=== PATIENT | male | born 1960 | race Caucasian/White ===

== ENCOUNTER 2020-02-09 08:37 | Outpatient (CLI) | payer OTHER ==
[2020-02-09] MEDS ORDERED: losartan PO (09:26)
[2020-02-09] MEDS ORDERED: VITA1TAB19 PO (09:26)
[2020-02-09] MEDS ORDERED: amlodipine PO (09:26)
[2020-02-09] MEDS ORDERED: VITA400C43 PO (09:26)
[2020-02-09] MEDS ORDERED: lipitor PO (09:26)
[2020-02-09 09:59] LABS: BASOPHILS # (AUTO) 0.07 x10^3/uL (0-0.1); BASOPHILS % (AUTO) 1 % (0-1); EOSINOPHILS # (AUTO) 0.14 x10^3/uL (0-0.4); EOSINOPHILS % (AUTO) 2 % (1-7); HCT (SEDRATE) 48.5 % (39.2-51.8); LYMPHOCYTES # (AUTO) 2.68 x10^3/uL (1-3.4); LYMPHOCYTES % (AUTO) 33 % (22-44); MD NO; MEAN CORPUSCULAR HGB CONC 34.6 g/dL (33.2-36.2); MEAN CORPUSCULAR VOLUME 92.4 fL (81-97); MONOCYTES # (AUTO) 0.43 x10^3/uL (0.2-0.8); MONOCYTES % (AUTO) 5 % (2-9); NEUTROPHILS # (AUTO) 4.86 x10^3/uL (1.8-6.8); NEUTROPHILS % (AUTO) 59 % (42-75); PLATELET COUNT 275 x10^3/uL (130-400); RED BLOOD COUNT 5.25 x10^6/uL (4.38-5.82); RED CELL DISTRIBUTION WIDTH 12.6 % (9.4-14.8)
[2020-02-09 10:07] LABS: MICROSCOPIC NOT IND
[2020-02-09 10:10] LABS: INTERNATIONAL NORMALIZED RATIO 0.9 (0.93-1.1); PROTHROMBIN TIME 9.5 Seconds (9.6-11.5)
[2020-02-09 10:11] LABS: CULTURE INDICATED? NO
[2020-02-09 10:15] LABS: ALANINE AMINOTRANSFERASE 19 U/L (12-78); ALBUMIN 3.5 g/dL (3.4-5.0); ANION GAP 11 mmol/L (5-15); CALCIUM 8.2 mg/dL (8.5-10.1); CHLORIDE 111 mmol/L (98-107); CREATININE 1.13 mg/dL (0.7-1.3)
[2020-02-09 10:17] LABS: ALKALINE PHOSPHATASE 162 U/L (45-117); BILIRUBIN,TOTAL 0.4 mg/dL (0.2-1.0)
[2020-02-13] MEDS ORDERED: LOSA50TA14 PO (06:42)
[2020-02-13] MEDS ORDERED: AMLO10TA8 PO (06:42)
[2020-02-13] MEDS ORDERED: BUPR150T6 PO (06:42)
[2020-02-13] MEDS ORDERED: ESCI10TA PO (06:42)
[2020-02-13] MEDS ORDERED: ALLO300T PO (06:42)
== END 2020-02-09 23:59 | disposition home or self-care (01) ==
LOC: STAR 08:37
PROVIDERS: ATTEND Orthopaedic Surgery Orthopaedic Surgery of the Spine
DX: Z01.818 Encounter for other preprocedural examination (principal); M50.10 Cervical disc disorder with radiculopathy, unspecified cervical region; M48.02 Spinal stenosis, cervical region; J44.9 Chronic obstructive pulmonary disease, unspecified
CPT/HCPCS: 36415; 71046; 80053; 80074; 81003; 85025; 85610; 85651; 85730; 87806; 93005; G0475